=== PATIENT | female | born 1935 | race Caucasian/White ===

== ENCOUNTER 2023-03-31 10:00 | Outpatient (RCR) | payer MEDICARE, OTHER, SELFPAY | END 2023-04-23 09:44 | disposition home or self-care (01) | LOC: HO.PT 10:00 | PROVIDERS: PCP Registered Nurse; Visit Provider Registered Nurse | DX: M51.36 Other intervertebral disc degeneration, lumbar region (principal); M51.34 Other intervertebral disc degeneration, thoracic region | CPT/HCPCS: 97110; 97162; 97530 ==

== ENCOUNTER 2024-04-12 10:00 | Outpatient (RCR) | payer MEDICARE, OTHER, SELFPAY | END 2024-06-29 13:49 | disposition home or self-care (01) | LOC: HO.PTCHIC 10:00 | PROVIDERS: PCP Registered Nurse; Visit Provider Physician Assistant | DX: M25.512 Pain in left shoulder (principal) | CPT/HCPCS: 97110; 97140; 97162 ==